=== PATIENT | female | born 1985 | race Caucasian/White ===

== ENCOUNTER 2018-07-08 16:58 | Emergency (ER) | payer MEDICAID, SELFPAY ==
[2018-07-08 17:08] VITALS: BP 118/69; PULSE 90; RESP 18; TEMP 36.9
[2018-07-08 17:43] LABS: Bilirubin Negative (Negative); Blood Negative (Negative); Clarity Clear; Glucose 100 mg/dL (Negative); Ketones Negative (Negative); Leukocyte Esterase Negative (Negative); Nitrite Positive (Negative); Urobilinogen 0.2 EU/dL (Up TO 0.2); pH 5.5 (5-8)
--- NOTE | 2018-07-08 17:47 | ED.GENADUL_ITS ---
Discharge Plan Disposition Patient Disposition: HOME Condition: Fair Discharge Details Chief Complaint: Urinary Clinical Impression: UTI (urinary tract infection) Reason For Visit: POSSIBLE UTI Primary Care Provider: Montserrat Jeter ED Provider: Tammy Connell Home Meds and New Rx's Prescriptions: Continue ibuprofen 600 MG tablet 600 mg PO TID PRNQty: 90 RF: 2 epinephrine [EpiPen 2-Riky] 0.3 MG/0.3 ML auto-injector 0.3 mg IM ONCE Qty: 2 RF: 4 Discharge Instructions Instructions: Urinary Tract Infection in Women (ED) Additional Instructions: Encourage hydration. You may use Pyridium as prescribed symptomatic management. Please take Keflex as prescribed. Even if symptoms improve please take the entire course. Please follow-up with primary care in 1 week if she is not improving. If he develops increased pain, nausea/vomiting, flank pain or other new/worsening symptoms please seek care urgently once again Referrals: Montserrat Jeter, NEWS GATHERING TECHNICIAN [Primary Care Provider] - Discharge Data Discharge Date/Time-TO BE ENTERED AT DEPARTURE: 07/08/18 18:18 Medical Decision Making [facility] Narrative Medical decision making narrative: Patient presents today with chief complaint of dysuria, increased frequency and urgency for the past 5 days. She reports that symptoms are progressively increasing. On exam, she shows very low back pain. No CVA tenderness. Patient reports that she frequently does experience low back pain with her UTIs. Has had multiple UTIs historically. Has not been diagnosed with one in several months. She denies any fevers or chills. Abdomen soft and nontender. Patient has urinated multiple times while here. Urinalysis findings suggestive of urinary tract infection. Nitrite positive Patient will be treated with Keflex for urinary tract infection. Encourage hydration. She was given strict return precautions. Advised follow-up with primary care in 1 week if symptoms are not improving. We discussed new/ worsening symptoms when to seek care urgently once again. All of her questions and concerns were addressed she is in agreement with plan. Patient will be prescribed Pyridium to help with symptomatic management. HPI - General Adult General Mode of arrival: ambulatory . Date/Time Provider Initiated Documentation: 07/08/18 17:14 . Limitations to Documentation: no limitations . Information obtained by: patient . HPI Narrative: Patient is an otherwise healthy 32-year-old female presenting today with chief complaint of dysuria, increased frequency and urgency. She reports that symptoms began approximately 5 days ago. She denies any fevers or chills. She is endorsing some low back pain and low central abdominal pain. She denies any vaginal discharge, no dyspareunia. Reports that she had her last menses 1 week ago. Patient reports she has had urinary tract infections in the past and this feels very similar. Patient also has history of nephrolithiasis but reports that this pain that she is experience in her lower back is not similar to when she has had stones historically. States the pain is fairly minimal and is lower than it had been previously. Related Data Allergies Allergy/AdvReac Type Severity Reaction Status Date / Time venom-honey bee Allergy Severe Anaphylaxsi Unverified 07/08/18 18:06 s Sulfa (Sulfonamide Allergy Mild twin Unverified 07/08/18 18:06 Antibiotics) sister allergic to sulfa General Stated Complaint: Urinary AYESHA: 3 Review of Systems Constitutional Reports as per HPI, Denies chills, Denies fever(s), Denies lethargy, Denies malaise and Denies poor appetite Cardiovascular Denies chest pain Respiratory Reports system reviewed and no additional complaints, except as docu and Denies cough Gastrointestinal Reports as per HPI Genitourinary Reports as per HPI Musculoskeletal Reports as per HPI, Denies abnormal gait and Reports back pain (low back pain, reports this is typical with UTI) Integumentary/Breasts Denies lesions, Denies rash and Denies skin pain Neurologic Denies abnormal gait PFSH Family History Mother Neoplasm Father No problems noted. Sister No problems noted. Grandfather Neoplasm Grandfather Neoplasm Grandmother No problems noted. Grandmother No problems noted. Social History Smoking/Tobacco Use Status: Current every day Surgical History Cholecystectomy Exam Const General: cooperative, healthy appearing, comfortable and no acute distress Nutritional Appearance: average body habitus Orientation: alert and awake Resp Effort & Inspection: normal respiratory effort, able to speak in complete sentences and no respiratory distress Auscultation: clear to auscultation bilaterally Cardio Rate: regular rate Rhythm: regular rhythm Heart Sounds: S1 normal and S2 normal GI Inspection: no abdominal wall ecchymosis, no edema, non-distended and no visible herniation Palpation: soft, no hepatosplenomegaly and tender (patinet is tender in low central abdomen, rpeorts this also makes her feel the need to urinate) Auscultation: normal bowel sounds Back/Spine/Pelvis Back: no CVA tenderness, No CVA tenderness, No erythema, No warmth and back tenderness (area of tenderness is low,just over the iliac crest. No pain elicited with palpation) Skin General skin exam: no rashes or lesions noted Neuro General: alert and awake Cognition: normal cognition Speech: speech normal Gait: normal gait Motor: muscle tone normal throughout Psych Appearance: grossly normal Mental Status: mental status grossly normal Speech and Movement: speech and movement normal Mood: congruent mood Affect: normal affect Course Vital Signs Temperature 36.9 C 07/08/18 17:08 Pulse 90 07/08/18 17:08 Respiratory Rate 07/08/18 17:08 Blood Pressure 118/69 07/08/18 17:08 Temperature 36.9 C 07/08/18 17:08 Pulse 90 07/08/18 17:08 Respiratory Rate 18 07/08/18 17:08 Blood Pressure 118/69 07/08/18 17:08
[2018-07-08 17:52] LABS: Bacteria Moderate HPF (Negative); C & S Indicated? Yes; Casts Negative LPF (Negative); Crystals Negative HPF (Negative); Epithelial Cells Few HPF (Negative); Mucus Negative (Negative); RBC Negative (0-2)
== END 2018-07-08 18:18 | disposition home or self-care (01) ==
PROVIDERS: Emergency Provider Physician Assistant; PCP Nurse Practitioner Gerontology
DX: N39.0 Urinary tract infection, site not specified (principal); B97.89 Other viral agents as the cause of diseases classified elsewhere
CPT/HCPCS: 99283; 81003; 81015; 87086

== ENCOUNTER 2018-07-15 11:51 | Outpatient (REF) | payer MEDICAID, SELFPAY | END 2018-07-15 12:11 | LOC: LBN 11:51 | PROVIDERS: PCP Nurse Practitioner Family; Visit Provider Family Medicine | DX: N39.0 Urinary tract infection, site not specified (principal) | CPT/HCPCS: 87086 ==

== ENCOUNTER 2018-07-24 17:14 | Emergency (ER) | payer MEDICAID, SELFPAY ==
[2018-07-24 17:20] VITALS: BP 123/83; PULSE 86; RESP 18; TEMP 36.8
[2018-07-24 18:16] LABS: Bilirubin Negative (Negative); Blood Negative (Negative); Clarity Sl Cloudy; Glucose Negative (Negative); Ketones Negative (Negative); Leukocyte Esterase Negative (Negative); Nitrite Negative (Negative); Specific Gravity >= 1.030 (1.005-1.025); Urobilinogen 0.2 EU/dL (Up TO 0.2); pH 5.5 (5-8)
--- NOTE | 2018-07-24 18:22 | W.ED.GENAD ---
Discharge Plan Disposition Patient Disposition: HOME Condition: Stable Discharge Details Chief Complaint: Urinary Clinical Impression: Increased urinary frequency, Frequent UTI Primary Care Provider: Silvia Helm ED Provider: Rich Friedman Home Meds and New Rx's Prescriptions: Continue epinephrine 0.15 mg/0.3 mL auto-injector IM PRN (Reason: anaphylaxis) RF: 0 nitrofurantoin macrocrystal 50 mg capsule 50 mg PO PRN Qty: 30 RF: 2 Discharge Instructions Instructions: Dysuria (ED) Additional Instructions: Feel free to return to the emergency department for any new or worsening symptoms including fever chills, nausea vomiting, or painful urination. Otherwise he will be placed upon the follow-up list for arrangement of an appointment with urology. Referrals: Javad Briones MD [ [facility] STAFF PHYSICIAN] - (For a recheck of your urinary frequency and recurrent urinary tract infections) Medical Decision Making Patient presenting to the emergency department for chief complaint of urinary frequency and urgency which she typically gets with her urinary tract infections. Patient denies any burning urination, or vaginal complaints. Patient denies fever chills nausea vomiting but she does state some left lower back pain. Physical exam shows no CVA tenderness, and otherwise unremarkable exam except for mild lower lumbar soft tissue tenderness. Patient states that she has had 4 urinary tract infections in the past year and gets urinary frequency and urgency quite often and at multiple times has had infection and other times does not have infection. I suspect low back pain is more due to patient's history of musculoskeletal back pain and doubt any renal issues due to no CVA tenderness. Given patient's history though of frequent urinary tract infections I do plan on checking urinalysis. After review of urinalysis that shows no signs of infection I did rediscussed with patient any possible other source of urinary urgency or frequency. Patient denies any vaginal complaints whatsoever states a faithful partner for the past 2 years and that she has had STD checks within the last 6 months which have always been negative. Patient denies any pain or discomfort so I did offer urine testing for GC chlamydia which patient denies at this time. Patient urinalysis did show some concentration so there was some signs of dehydration which patient states that she typically does not drink water so she was encouraged to increase her hydration. Otherwise for musculoskeletal back pain patient was encouraged to take ibuprofen. [id number] test was also negative. Due to patient having for urinary tract infections last year and having continued urinary urgency and frequency with no other source or cause noted did put patient on care management's list for a nonemergent follow-up with urology to see if there are any anatomical features causing her symptoms. Although if urology recommends patient to be seen by primary care that that is also reasonable follow-up plan. Patient was encouraged to return for any new or worsening symptoms. HPI General Mode of arrival: ambulatory. Date/Time Provider Initiated Documentation: 07/24/18 17:17. Limitations to Documentation: no limitations. Information obtained by: patient, RN notes reviewed and old records reviewed. History of Present Illness 32 year old F presents to the emergency department with the chief complaint of urinary frequency, described as mild, Quality is described as other, Patient started experiencing this day(s) (1) and it has been constant. No relieving factors improve symptom(s), No exacerbating factors reported . Patient notes no other symptoms.. Patient did receive the following treatments prior to arrival, none Related Data Home Medications Medication Instructions Recorded Confirmed epinephrine 0.15 mg/0.3 mL IM PRN each 07/14/18 07/15/18 injection,auto-injector Previous Rx's Medication Instructions Recorded nitrofurantoin macrocrystal 50 mg 50 mg PO PRN #30 cap 07/20/18 capsule Allergies Allergy/AdvReac Type Severity Reaction Status Date / Time venom-honey bee Allergy Severe Anaphylaxsi Unverified 07/15/18 08:41 s Sulfa (Sulfonamide Allergy Mild twin Unverified 07/15/18 08:41 Antibiotics) sister allergic to sulfa General Stated Complaint: Urinary AYESHA: 3 Review of Systems Constitutional Denies body ache(s), Denies chills, Denies fever(s), Denies malaise and Denies weakness Cardiovascular Denies chest pain Respiratory Reports system reviewed and no additional complaints, except as docu Gastrointestinal Denies abdominal pain, Denies nausea and Denies vomiting Genitourinary Reports as per HPI, Denies abnormal menses, Denies hematuria, Denies dyspareunia, Denies dysuria, Reports sexual dysfunction, Denies urinary incontinence, Denies urinary hesitancy, Reports urinary urgency, Denies vaginal discharge, Denies vaginal pruritus and Reports other Neurologic Denies confusion and Denies weakness Psychiatric Denies confusion PFSH Family History Mother Neoplasm Father No problems noted. Sister No problems noted. Grandfather Neoplasm Grandfather Neoplasm Grandmother No problems noted. Grandmother No problems noted. Social History household members: other details: 4 current occupational status: employed current occupation: [employer] pets and animals: Yes pets and animals: cat(s) Smoking/Tobacco Use Status: Current every day alcohol intake: current alcohol intake frequency: a few times a month substance use type: does not use special ryan needs: No Surgical History Cholecystectomy Exam Const General: cooperative and no acute distress Orientation: alert, awake and oriented x3 Resp Effort & Inspection: normal respiratory effort and able to speak in complete sentences Auscultation: clear to auscultation bilaterally Cardio Rate: regular rate Rhythm: regular rhythm Heart Sounds: S1 normal and S2 normal GI Palpation: nontender Back/Spine/Pelvis Back: no CVA tenderness Thoracic/Lumbar Spine: paraspinal tenderness (As noted below) and No lumbar spinal tenderness Back/spine/pelvis image: 1. area of tenderness Neuro General: alert, awake and oriented x3 Extrem General: normal capillary refill Course Vital Signs Temperature 36.8 C 07/24/18 17:20 Pulse 86 07/24/18 17:20 Respiratory Rate 18 07/24/18 17:20 Blood Pressure 123/83 07/24/18 17:20 Temperature 36.8 C 07/24/18 17:20 Pulse 86 07/24/18 17:20 Respiratory Rate 18 07/24/18 17:20 Blood Pressure 123/83 07/24/18 17:20 Lab/Test Results Lab/Test Results: Laboratory Tests 07/24/18 18:02 Urine Color Yellow Urine Clarity Sl cloudy Urine pH 5.5 Ur Specific [place] >= 1.030 H Urine Protein Negative Urine Ketones Negative Urine Blood Negative Urine Nitrite Negative Urine Bilirubin Negative Urine Urobilinogen 0.2 Ur Leukocyte Esterase Negative Urine Glucose Negative
--- NOTE | 2018-07-24 18:48 | ED.GENADUL_ITS ---
Discharge Plan Disposition Patient Disposition: HOME Condition: Stable Discharge Details Chief Complaint: Urinary Clinical Impression: Increased urinary frequency, Frequent UTI Primary Care Provider: Silvia Helm ED Provider: Rich Friedman Home Meds and New Rx's Prescriptions: Continue epinephrine 0.15 mg/0.3 mL auto-injector IM PRN (Reason: anaphylaxis) RF: 0 nitrofurantoin macrocrystal 50 mg capsule 50 mg PO PRN Qty: 30 RF: 2 Discharge Instructions Instructions: Dysuria (ED) Additional Instructions: Feel free to return to the emergency department for any new or worsening symptoms including fever chills, nausea vomiting, or painful urination. Otherwise he will be placed upon the follow-up list for arrangement of an appointment with urology. Referrals: Javad Briones MD [ [facility] STAFF PHYSICIAN] - (For a recheck of your urinary frequency and recurrent urinary tract infections) Medical Decision Making Patient presenting to the emergency department for chief complaint of urinary frequency and urgency which she typically gets with her urinary tract infections. Patient denies any burning urination, or vaginal complaints. Patient denies fever chills nausea vomiting but she does state some left lower back pain. Physical exam shows no CVA tenderness, and otherwise unremarkable exam except for mild lower lumbar soft tissue tenderness. Patient states that she has had 4 urinary tract infections in the past year and gets urinary frequency and urgency quite often and at multiple times has had infection and other times does not have infection. I suspect low back pain is more due to patient's history of musculoskeletal back pain and doubt any renal issues due to no CVA tenderness. Given patient's history though of frequent urinary tract infections I do plan on checking urinalysis. After review of urinalysis that shows no signs of infection I did rediscussed with patient any possible other source of urinary urgency or frequency. Patient denies any vaginal complaints whatsoever states a faithful partner for the past 2 years and that she has had STD checks within the last 6 months which have always been negative. Patient denies any pain or discomfort so I did offer urine testing for GC chlamydia which patient denies at this time. Patient urinalysis did show some concentration so there was some signs of dehydration which patient states that she typically does not drink water so she was encouraged to increase her hydration. Otherwise for musculoskeletal back pain patient was encouraged to take ibuprofen. [id number] test was also negative. Due to patient having for urinary tract infections last year and having continued urinary urgency and frequency with no other source or cause noted did put patient on care management's list for a nonemergent follow- up with urology to see if there are any anatomical features causing her symptoms. Although if urology recommends patient to be seen by primary care that that is also reasonable follow-up plan. Patient was encouraged to return for any new or worsening symptoms. HPI General Mode of arrival: ambulatory . Date/Time Provider Initiated Documentation: 07/24/18 17:17 . Limitations to Documentation: no limitations . Information obtained by: patient, RN notes reviewed and old records reviewed . History of Present Illness 32 year old F presents to the emergency department with the chief complaint of urinary frequency, described as mild, Quality is described as other, Patient started experiencing this day(s) (1) and it has been constant. No relieving factors improve symptom(s), No exacerbating factors reported . Patient notes no other symptoms.. Patient did receive the following treatments prior to arrival, none Related Data Home Medications Medication Instructions Recorded Confirmed epinephrine 0.15 mg/0.3 mL IM PRN each 07/14/18 07/15/18 injection,auto-injector Previous Rx's Medication Instructions Recorded nitrofurantoin macrocrystal 50 mg 50 mg PO PRN #30 cap 07/20/18 capsule Allergies Allergy/AdvReac Type Severity Reaction Status Date / Time venom-honey bee Allergy Severe Anaphylaxsi Unverified 07/15/18 08:41 s Sulfa (Sulfonamide Allergy Mild twin Unverified 07/15/18 08:41 Antibiotics) sister allergic to sulfa General Stated Complaint: Urinary AYESHA: 3 Review of Systems Constitutional Denies body ache(s), Denies chills, Denies fever(s), Denies malaise and Denies weakness Cardiovascular Denies chest pain Respiratory Reports system reviewed and no additional complaints, except as docu Gastrointestinal Denies abdominal pain, Denies nausea and Denies vomiting Genitourinary Reports as per HPI, Denies abnormal menses, Denies hematuria, Denies dyspareunia , Denies dysuria, Reports sexual dysfunction, Denies urinary incontinence, Denies urinary hesitancy, Reports urinary urgency, Denies vaginal discharge, Denies vaginal pruritus and Reports other Neurologic Denies confusion and Denies weakness Psychiatric Denies confusion PFSH Family History Mother Neoplasm Father No problems noted. Sister No problems noted. Grandfather Neoplasm Grandfather Neoplasm Grandmother No problems noted. Grandmother No problems noted. Social History household members: other details: 4 current occupational status: employed current occupation: [employer] pets and animals: Yes pets and animals: cat(s) Smoking/Tobacco Use Status: Current every day alcohol intake: current alcohol intake frequency: a few times a month substance use type: does not use special ryan needs: No Surgical History Cholecystectomy Exam Const General: cooperative and no acute distress Orientation: alert, awake and oriented x3 Resp Effort & Inspection: normal respiratory effort and able to speak in complete sentences Auscultation: clear to auscultation bilaterally Cardio Rate: regular rate Rhythm: regular rhythm Heart Sounds: S1 normal and S2 normal GI Palpation: nontender Back/Spine/Pelvis Back: no CVA tenderness Thoracic/Lumbar Spine: paraspinal tenderness (As noted below) and No lumbar spinal tenderness Back/spine/pelvis image: 2 1. area of tenderness Neuro General: alert, awake and oriented x3 Extrem General: normal capillary refill Course Vital Signs Temperature 36.8 C 07/24/18 17:20 Pulse 86 07/24/18 17:20 Respiratory Rate 18 07/24/18 17:20 Blood Pressure 123/83 07/24/18 17:20 Temperature 36.8 C 07/24/18 17:20 Pulse 86 07/24/18 17:20 Respiratory Rate 18 07/24/18 17:20 Blood Pressure 123/83 07/24/18 17:20 Lab/Test Results Lab/Test Results: Laboratory Tests 07/24/18 18:02 Urine Color Yellow Urine Clarity Sl cloudy Urine pH 5.5 Ur Specific [place] >= 1.030 H Urine Protein Negative Urine Ketones Negative Urine Blood Negative Urine Nitrite Negative Urine Bilirubin Negative Urine Urobilinogen 0.2 Ur Leukocyte Esterase Negative Urine Glucose Negative
[2018-07-24 18:59] VITALS: BP 123/83; PULSE 86; RESP 18; TEMP 36.8
--- NOTE | 2018-07-27 09:27 | PDOC.ERCMPRO ---
Care Management Progress Note 07/27/18-Pt seen on 07/24/18 by Rudy Friedman NP for increased UTI frequency. F/U request faxed to Urology.
== END 2018-07-24 19:05 | disposition home or self-care (01) ==
PROVIDERS: Emergency Provider Nurse Practitioner Family; PCP Nurse Practitioner Family
DX: R35.0 Frequency of micturition (principal); Z87.440 Personal history of urinary (tract) infections
CPT/HCPCS: 81025; 99283; 81003; 87086; 99282

== ENCOUNTER 2019-06-02 14:20 | Outpatient (CLI) | payer MEDICAID, SELFPAY ==
--- NOTE | 2019-06-02 13:45 | DI.US_ITS ---
SYMPTOMS/DIAGNOSIS: BLEEDING, EARLY , ABDOMINAL CRAMPING, O20.9, O26.899, R10.9 OB ULTRASOUND: Many abnormalities cannot be diagnosed. A normal exam does not exclude a congenital anomaly. HISTORY: Date of exam: LMP: EDC by LMP: Previous study: 5 wks Range: to EDC by prior us: Findings: Prior surgery/: BIOMETRY: PELVIC MEASUREMENTS: CRL: mm wks Uterus: 8.2 x 4.3 x 3.5 cm Yolk sac: mm wks Gest sac: mm wks Rt Ovary: 2.6 x 1.9 x 1.8 cm BPD: mm wks HC: mm wks Lt Ovary: N/S x x cm AC: mm wks FL: mm wks Comments: Endometrium 9.7 mm Composite Age (US): wks EDC by US: Heart Rate: BPM Amniotic Fluid: [place] Normal Polyhydramnios Movement noted: Yes No Comments: The uterus measures 8.2 x 4.3 x 3.5 cm. There is no evidence of an intrauterine gestation. The endometrium is 9.7 mm in thickness. The right ovary measures 2.6 x 1.9 x 1.8 cm. The left ovary was not seen. There is no evidence of free pelvic fluid. SUMMARY: No evidence of an intrauterine gestation. Nothing specific to suggest an ectopic gestation. Correlation with the patient's hCG levels is recommended.
[2019-06-02 15:10] LABS: HCG Quant, Pregnancy 31 mIU/mL (1-3)
== END 2019-06-02 14:40 ==
PROVIDERS: PCP Nurse Practitioner Family; Visit Provider Nurse Practitioner Women's Health
DX: O20.9 Hemorrhage in early pregnancy, unspecified (principal); O26.899 Other specified pregnancy related conditions, unspecified trimester; R10.9 Unspecified abdominal pain
CPT/HCPCS: 36415; 86850; 86900; 86901; 76801; 84702

== ENCOUNTER 2019-06-07 15:20 | Outpatient (CLI) | payer MEDICAID, SELFPAY ==
[2019-06-07 16:22] LABS: HCG Quant, Pregnancy 4 mIU/mL (1-3)
== END 2019-06-07 15:40 ==
PROVIDERS: PCP Nurse Practitioner Family; Visit Provider Nurse Practitioner Women's Health
DX: O03.9 Complete or unspecified spontaneous abortion without complication (principal)
CPT/HCPCS: 36415; 84702

== ENCOUNTER 2019-06-09 19:05 | Emergency (ER) | payer MEDICAID, SELFPAY ==
[2019-06-09 19:09] VITALS: BP 147/73; PULSE 78; RESP 16; TEMP 36.6; O2SAT 100
--- NOTE | 2019-06-09 19:14 | W.ED.GENAD ---
Discharge Plan Disposition Patient Disposition: HOME Condition: Fair Discharge Details Chief Complaint: Urinary Clinical Impression: UTI (urinary tract infection) Primary Care Provider: Silvia Helm ED Provider: Tammy Connell Home Meds and New Rx's Prescriptions: New cephalexin [Keflex] 500 mg capsule 500 mg PO BID Qty: 10 RF: 0 Continued nicotine 21 mg/24 hr patch 24 hour 1 patch TD DAILY Qty: 42 RF: 0 nicotine 7 mg/24 hr patch 24 hour 1 patch TD DAILY 14 Days Qty: 14 RF: 6 sumatriptan succinate 50 mg tablet 50 mg PO ONCE PRN (Reason: migraine headache) Qty: 90 RF: 1 epinephrine 0.15 mg/0.3 mL auto-injector IM PRN (Reason: anaphylaxis) RF: 0 Discharge Instructions Instructions: Cephalexin (By mouth), Urinary Tract Infection in Women (ED) Additional Instructions: Encourage hydration. May continue with Azo to help with symptoms. Please take Keflex as prescribed. Even if symptoms improve please take the entire course. If you develop fevers/chills, back pain or other new/worsening symptoms please seek care urgently once again. Please follow up with primary care next week if symptoms are not completely resolved. Referrals: Silvia Helm, PROGRAMMING COORDINATOR [Primary Care Provider] - Medical Decision Making Patient is a 33 year old female presenting today with c/c of UTI. States that she has had UTIs historically, was last diagnosed with UTI 07/21. Successfully treated wit habx. States that she had a miscarriage last week, 6 weeks gestation. Bleeding has resolved, no vaginal discharge. States that dysurea, increased frequency and urgency began this morning. Used Azo with good relief of symptoms. Denies CVA tenderness, no fevers/chills. No abdominla pin on exam. Patient nontoxic. BP elevated at 147/73, otherwise VS WNL. UA pending. UPT negative. UA is difficult to interrpret secondary to color contamination from Azo. With her history, I am concered that she has UTI, will treat with Keflex, culture pending. encourage hydrated. Discussed worsening symptoms that should prompt reevaluation. All of her questions and concerns were addressed, she is in agreement iwht this plan. HPI General Mode of arrival: ambulatory. Date/Time Provider Initiated Documentation: 06/09/19 19:14. Limitations to Documentation: no limitations. Information obtained by: patient and RN notes reviewed. History of Present Illness 33 year old F presents to the emergency department with the chief complaint of dysurea, described as moderate and similar to prior episodes, Quality is described as burning, and is localized to the pelvis (discomfort with urination). Patient reports radiation to back. Patient started experiencing this hour(s) and it has been constant. No relieving factors improve symptom(s), No exacerbating factors reported . Patient notes denies chest pain, cough, diaphoresis, fever/chills, loss of appetite, nausea/vomiting, rash and shortness of breath. Patient did receive the following treatments prior to arrival, other (azo) Related Data Home Medications Medication Instructions Recorded Confirmed epinephrine 0.15 mg/0.3 mL IM PRN each 07/14/18 06/02/19 injection,auto-injector nicotine 21 mg/24 hr daily 1 patch TD DAILY #42 each 03/17/19 06/09/19 transdermal patch nicotine 7 mg/24 hr daily 1 patch TD DAILY 14 Days #14 each 03/17/19 06/09/19 transdermal patch sumatriptan succinate 50 mg tablet 50 mg PO ONCE PRN #90 tab 03/17/19 06/09/19 cephalexin [Keflex] 500 mg PO BID #10 cap 06/09/19 Previous Rx's Medication Instructions Recorded nicotine 21 mg/24 hr daily 1 patch TD DAILY #42 each 03/17/19 transdermal patch nicotine 7 mg/24 hr daily 1 patch TD DAILY 14 Days #14 each 03/17/19 transdermal patch sumatriptan succinate 50 mg tablet 50 mg PO ONCE PRN #90 tab 03/17/19 cephalexin [Keflex] 500 mg PO BID #10 cap 06/09/19 Allergies Allergy/AdvReac Type Severity Reaction Status Date / Time venom-honey bee Allergy Severe Anaphylaxsi Verified 06/09/19 19:15 s Sulfa (Sulfonamide Allergy Mild twin Verified 06/09/19 19:15 Antibiotics) sister allergic to sulfa General AYESHA: 3 Review of Systems Constitutional Reports as per HPI, Denies chills, Denies fever(s) and Denies poor appetite Cardiovascular Denies chest pain Respiratory Denies cough Gastrointestinal Denies abdominal pain, Denies change in bowel habits, Denies nausea and Denies vomiting Genitourinary Reports as per HPI Musculoskeletal Reports as per HPI and Denies back pain Integumentary/Breasts Reports as per HPI and Denies rash [facility] Medical History Cigarette smoker (Chronic 02/13/18) Generalized anxiety disorder (Chronic) Hyperlipidemia (Chronic) Migraine headache with aura (Chronic) Surgical History Cholecystectomy (Inactive ~2010) Social History Smoking/Tobacco Use Status: Current every day Tobacco: How many years used: 15 Quit status: considering quitting Alcohol Intake: current Alcohol Intake frequency: a few times a month Alcohol type: hard liquor Drug use: Never Substance use type: does not use Caregiver/Support person: No Household members: significant other, family, children and other Details: Sister, Boyfriend, Niece Communication Needs: None Do you need help understanding health information?: Rarely current occupation: Factory line at [employer] Pets and animals: No Sexually active: No Current gender identity: female What is your relationship status?: living with partner How often do you talk on the phone with friends or family?: three or more times per week How often do you get together with friends or relatives?: three or more times per week How often do you attend sabianism or yarsani services?: decline to answer Do you belong to any clubs or organized social groups?: no Panel score (0-1 are the most socially isolated patients): 2 What type of physical activity do you participate in: none Jayla/Yazidi: None Special jayla needs: No Seatbelt use: always Helmet use: Yes Helmet use: always Drive intox or ride w/intox retail delivery driver: No Do you feel safe in your relationship?: Yes Female Reproductive History Menstrual control method: none History History 2 Para Hx # Term Pregnancies Multiple births Hx # Pregnancies Ectopic pregnancies AB induced 1 Hx Number of Living Children AB spontaneous 1 Exam Const General: cooperative, healthy appearing, comfortable, no acute distress, well developed and well groomed Nutritional Appearance: average body habitus and well nourished Orientation: alert and awake Resp Effort & Inspection: normal respiratory effort and no respiratory distress Auscultation: clear to auscultation bilaterally, no rales, no rhonchi and no wheezes Cardio Rate: regular rate Rhythm: regular rhythm Heart Sounds: S1 normal and S2 normal GI Inspection: normal to inspection Palpation: soft, no hepatosplenomegaly, not firm, no guarding, not rigid and nontender Back/Spine/Pelvis Back: no CVA tenderness Skin General skin exam: no rashes or lesions noted Trauma: no lacerations or abrasions Neuro General: alert and awake Cognition: normal cognition Speech: speech normal Gait: normal gait Psych Appearance: grossly normal and well kempt Mental Status: mental status grossly normal Speech and Movement: speech and movement normal
[2019-06-09 19:17] LABS: Bilirubin Negative (Negative); Blood Negative (Negative); Clarity Clear (Clear); Ketones Negative (Negative); Leukocyte Esterase Negative (Negative)
[2019-06-09 19:19] LABS: Glucose Color Interference mg/dL (Negative); Urobilinogen Color Interference EU/dL (Up TO 0.2)
[2019-06-09 19:20] LABS: Nitrite Color Interference (Negative)
[2019-06-09 19:32] LABS: Bacteria Few HPF (Negative); Crystals Negative HPF (Negative); Epithelial Cells Moderate HPF (Negative); Other Cells Few Transitional (Negative); RBC 0-2 (0-2)
[2019-06-09 19:33] LABS: C & S Indicated? Yes; Casts Negative LPF (Negative); Mucus Negative (Negative)
[2019-06-09] MEDS: Cephalexin 500 MG CAP 1000 MG PO (20:05)
== END 2019-06-09 20:18 | disposition home or self-care (01) ==
PROVIDERS: Emergency Provider Physician Assistant; PCP Nurse Practitioner Family
DX: N39.0 Urinary tract infection, site not specified (principal); Z87.440 Personal history of urinary (tract) infections
CPT/HCPCS: 87077; 99283; 81003; 81015; 87086; 87186

== ENCOUNTER 2020-05-12 16:15 | Outpatient (REF) | payer SELFPAY ==
--- NOTE | 2020-05-12 14:20 | PAPFT_PTH ---
PATIENT: Aj Horvath LOC: [facility] U#:[id number] AGE/SX: 34/F ROOM: RE05/12/[address]: BLACK Cordoba : 1985 BED: DIS: 05/12/2020 SPEC #: [id number] RECD: 05/15/20 13:01 STATUS: BECCA DRAKE #: [id number] MEHRDAD: 05/12/20 14:[address]: Silvia Helm DEPT: [facility] Cytology RECD BY: Kelly Vergara Tissues: 1 - CX/ENDOCX FOR PAP SMEARS Procedures: PAP THIN PREP/UVM Screening HPV DNA PROBE Comments: [id number]
== END 2020-05-12 16:35 ==
LOC: LBN 16:15
PROVIDERS: PCP Nurse Practitioner Family; Visit Provider Nurse Practitioner Family
DX: Z12.4 Encounter for screening for malignant neoplasm of cervix (principal); Z11.51 Encounter for screening for human papillomavirus (HPV)
CPT/HCPCS: 88142; 87624

== ENCOUNTER 2020-05-29 07:40 | Outpatient (CLI) | payer SELFPAY ==
[2020-05-31 15:10] LABS: SARS-CoV-2 RNA Undetected (Undetected); SARS-CoV-2 Specimen Source Nasopharynx
== END 2020-05-29 08:00 ==
PROVIDERS: PCP Nurse Practitioner Family; Visit Provider Nurse Practitioner Family
DX: Z03.818 Encounter for observation for suspected exposure to other biological agents ruled out (principal)
CPT/HCPCS: U0003

== ENCOUNTER 2024-11-05 14:27 | Outpatient (CLI) | payer SELFPAY ==
[2024-11-05 14:23] LABS: Abs Immature Grans 0.02 10^3/uL (0.0-0.06); Absolute Basophil Count 0.04 10^3/uL (0.0-0.2); Absolute Eosinophil Count 0.41 10^3/uL (0.0-0.7); Absolute Lymphocyte Count 1.15 10^3/uL (1.2-3.4); Absolute Monocyte Count 0.41 10^3/uL (0.1-0.8); Basophils % 0.7 %; Eosinophils % 7.3 %; HCT 36.4 % (36.0-46.0); HGB 12.3 g/dL (11.2-15.7); Immature Grans % 0.4 %; Lymphocytes % 20.4 %; MCHC 33.8 % (32.0-36.0); MCV 92 fL (80-95); Monocytes % 7.3 %; Neutrophils % 63.9 %; Platelet Count 320 10^3/uL (130-400); RBC 3.97 10^6/uL (3.93-5.22); RDW 11.9 % (11.7-14.6); RDW-SD 39.9 fL; WBC 5.63 10^3/uL (4.4-10.8)
[2024-11-05 15:10] LABS: ALT 27 U/L (14-59); AST 17 U/L (15-37); Albumin 3.2 g/dL (3.4-5.0); Alkaline Phosphatase 81 U/L (46-116); Anion Gap 9.2 mmol/L (3-11); BUN 4 mg/dL (7-18); Bilirubin, Total 0.56 mg/dL (0.2-1.0); CO2 26.8 mmol/L (21.0-32.0); CREATININE 0.8 mg/dL (0.55-1.02); Calcium 8.5 mg/dL (8.5-10.1); Chloride 104 mmol/L (98-107); Estimated GFR 97.87 (mL/min/1.73m2); Glucose 127 mg/dL (74-106); Potassium 3.4 mmol/L (3.5-5.1); Sodium 140 mmol/L (136-145); Total Protein 7.3 g/dL (6.4-8.2)
[2024-11-07 19:51] LABS: Campylobacter PCR Negative (Negative); Salmonella PCR Negative (Negative); Shiga Toxin PCR Negative (Negative); Shigella/Enteroinvasive Ecoli Negative (Negative)
== END 2024-11-05 14:28 | disposition home or self-care (01) ==
LOC: LBO 14:29 → LBN 15:13
PROVIDERS: Visit Provider Physician Assistant
DX: R19.7 Diarrhea, unspecified (principal)
CPT/HCPCS: 36415; 80053; 87505; 85025; 87177

== ENCOUNTER 2024-11-10 17:18 | Emergency (ER) | payer SELFPAY ==
[2024-11-10 17:27] VITALS: BP 121/76; PULSE 93; RESP 18; TEMP 36.8; O2SAT 100
[2024-11-10 18:10] VITALS: BP 116/79; PULSE 86; RESP 18; TEMP 37.5; O2SAT 100
--- NOTE | 2024-11-10 19:40 | ED.GENADUL_ITS ---
Discharge Plan Disposition Patient Disposition: Home Condition: Good Discharge Details Clinical Impression: Colitis Primary Care Provider: Unknown,Unknown ED Provider: Jen Lazo Home Meds and New Rx's Prescriptions: No Action epinephrine 0.15 mg/0.3 mL auto-injector 0.3 ml IM ONCE PRN (Reason: anaphylaxis) Discharge Instructions Instructions: Colitis (DC) Additional Instructions: Call your primary care doctor in the morning to schedule an appointment for within the next 72 hours to followup on your visit here. Return to the emergency department for new or worsening symptoms including fever, vomiting, abdominal pain, increasing amounts of blood in your stool, feeling like you are going to pass out, or if you have any other concerns. You also have an adrenal nodule which your PCP should follow-up on; they may want to get more imaging. HPI General Mode of arrival: ambulatory . Date/Time Provider Initiated Documentation: 11/10/24 17:35 . Limitations to Documentation: no limitations . Information obtained by: patient and old records reviewed ([facility] note and diagnosis 11/05/24) . HPI Narrative: 38yo F presenting wtih bloody stool. Has had diarrhea for the past 2 weeks, 3-5 episodes of loose stool each day. Today began to noticed small amounts of blood in the toilet and when she wipes. No abdominal pain, lightheadeness, or synco pe. Went to urgent care on 11/05 where she had reassuring labs and negative stool studies. No change in character or frequency of stool since then aside from noticing blood. Otherwise in her usual state of health with no fevers, chills, rash, nausea, vomiting, or other concerns. Related Data Home Medications ?Medication ?Instructions ?Recorded ?Confirmed epinephrine 0.15 mg/0.3 mL 0.3 ml IM ONCE PRN anaphylaxis 05/14/20 11/10/24 injection,auto-injector Allergies Allergy/AdvReac Type Severity Reaction Status Date / Time venom-honey bee Allergy Severe Anaphylaxsi Verified 11/10/24 17:30 s Sulfa (Sulfonamide Allergy Mild twin Verified 11/10/24 17:30 Antibiotics) sister allergic to sulfa General Stated Complaint: Abd Prob AYESHA: 3 Review of Systems Narrative: see HPI Exam Narrative Exam Narrative: General: Alert, well appearing, well nourished, in no acute distress. Head: Normocephalic, atraumatic Neck: Trachea midline, ?Neck supple. ENT: ?MMM.? No oropharygeal lesions or exudate. Cardiac: ?RRR, no murmurs appreciated Resp: No respiratory distress. CTAB. Abd: ?Soft, non-distended, nontender Rectal: Normal external exam. Good tone. No palpable masses. No aleksander blood. : ?No suprapubic tenderness. No CVA tenderness. Extremities: ?No deformities.? No peripheral edema. Neurologic: GCS 15. ? Moves all extremities freely against gravity Course Vital Signs Vital signs: Vital Signs Temperature 36.8 C 11/10/24 17:27 Pulse 93 H 11/10/24 17:27 Respiratory Rate 18 11/10/24 17:27 Blood Pressure 121/76 11/10/24 17:27 Pulse Oximetry 100 11/10/24 17:27 Temperature 37.5 C 11/10/24 18:10 Temperature Source Tympanic 11/10/24 18:10 Pulse 86 11/10/24 18:10 Respiratory Rate 18 11/10/24 18:10 Blood Pressure 116/79 11/10/24 18:10 Blood Pressure Position Sitting 11/10/24 17:27 Pulse Oximetry 100 11/10/24 18:10 Oxygen Delivery Method Room Air 11/10/24 18:10 Oxygen Flow Rate 0 11/10/24 18:10 Pain Level 5 11/10/24 17:27 Medical Decision Making 38yo F presenting wtih bloody stool. Has had diarrhea for the past 2 weeks, 3-5 episodes of loose stool each day. Went to urgent care on 11/05 where she had reassuring labs and negative stool studies. Today small amounts of blood in the toilet and when she wipes. No fevers, abdominal pain, lightheadeness, or syncope. Vital signs reassuring on arrival. No abdominal tenderness on exam. Rectal exam with no hemorrhoids, no gross blood. Labs reviewed as below, CBC with no leukocytosis or anemia, CMP with no actionable abnormalities, negative. CT abd pelvis independently reviewed, agree with radiology read below with acute colitis, incidental adrenal nodule. No stool in the ED so repeat stool studies not ordered. With no fever or abdominal pain, would not treat with abx at this time. Possibility of inflammatory colitis (UC, etc) discussed with patient. Advised symptomatic treatment at home and close PCP followup; pt newly returned to the area and so referral to her former primary care practice and [facility] was sent. Discharge instructions and return precautions were reviewed with patient who verbalized understanding. All questions were answered and she is in full agreement with the plan. Imaging Data Radiologic Study: Imaging: CT Scan Radiologist's impression: IMPRESSION: 1. Ruptured 2.0 cm left ovarian corpus luteum with a small amount of free fluid in the cul-de-sac of Donnie and adnexal regions. 2. Extensive colonic wall thickening with adjacent hazy fat stranding and scattered small pericolic lymph nodes suspicious for extensive acute colitis. Infectious or inflammatory colitis would be favored in a young patient. This distribution would be atypical for ischemia although ischemia is not excluded. Clinical correlation is recommended. 3. 9 mm right adrenal nodule with a density of 59 Hounsfield units on image 17 of series 8. Correlation with prior imaging recommended to document stability of size versus MRI with chemical shift imaging for definitive evaluation. Lab Data Lab results reviewed: Yes I reviewed the patient's lab results. Labs: Laboratory Tests Range/Units 11/10/24 20:34 WBC (4.4-10.8) 10^3/uL 7.59 RBC (3.93-5.22) 10^6/uL 3.93 Hgb (11.2-15.7) g/dL 12.2 Hct (36.0-46.0) % 36.4 MCV (80-95) fL 93 MCH (27.0-33.0) pg 31.0 MCHC (32.0-36.0) % 33.5 RDW (11.7-14.6) % 11.9 Plt Count (130-400) 10^3/uL 350 MPV (8.0-11.0) fL 9.1 Immature Gran % % 0.3 Neutrophils % % 61.7 Lymphocytes % % 18.8 Monocytes % % 9.4 Eosinophils % % 9.1 Basophils % % 0.7 Nucleated RBC % (0.0-0.3) % 0.0 Absolute Neutrophils (1.2-6.7) 10^3/uL 4.69 Absolute Lymphocytes (1.2-3.4) 10^3/uL 1.43 Absolute Monocytes (0.1-0.8) 10^3/uL 0.71 Absolute Eosinophils (0.0-0.7) 10^3/uL 0.69 Absolute Basophils (0.0-0.2) 10^3/uL 0.05 Sodium (136-145) mmol/L 139 Potassium (3.5-5.1) mmol/L 3.7 Chloride (98-107) mmol/L 101 Carbon Dioxide (21.0-32.0) mmol/L 30.0 Anion Gap (3-11) mmol/L 8.0 BUN (7-18) mg/dL 7 Creatinine (0.55-1.02) mg/dL 0.8 Est GFR (CKD-EPI 2020) (mL/min/1.73m2) 97.87 Glucose (74-106) mg/dL 107 H Calcium (8.5-10.1) mg/dL 9.1 Total Bilirubin (0.2-1.0) mg/dL 0.47 AST (15-37) U/L 19 ALT (14-59) U/L 27 Alkaline Phosphatase (46-116) U/L 91 Total Protein (6.4-8.2) g/dL 8.0 Albumin (3.4-5.0) g/dL 3.5 Serum HCG, Qual Negative Quality:SDOH Health Related Social Needs: No Data to Display PFSH All Active Problems Colitis (Acute) Hyperlipidemia (Chronic) Generalized anxiety disorder (Chronic) Migraine headache with aura (Chronic) Cigarette smoker (Chronic) Surgical History S/P cholecystectomy (~2010) Family History Mother Breast cancer Early 40s Depression Father Alcohol abuse Sister Alcohol abuse Depression Maternal Grandfather Liver disease Alcohol abuse Neoplasm Unknown type Heart disease Maternal Grandmother , at 94 from stroke Stroke Skin cancer Paternal Grandfather , at 35 of ?cancer Alcohol abuse Neoplasm Unknown type Paternal Grandmother Depression Social History Smoking/Tobacco Use Status: Current every day Tobacco: How many years used: 15 Quit status: considering quitting Smoking risk assessment performed?: Yes Alcohol Intake: current Alcohol Intake frequency: a few times a month Alcohol type: hard liquor Drug use: Never Substance use type: does not use Caregiver/Support person: No Household members: significant other, family, children and other Details: Sister, Boyfriend, Niece Housing: house Communication Needs: None Do you need help understanding health information?: Rarely current occupation: Factory line at [employer] Pets and animals: No Sexually active: No Current gender identity: female What is your relationship status?: living with partner How often do you talk on the phone with friends or family?: three or more times per week How often do you get together with friends or relatives?: three or more times per week How often do you attend yazdanism or judaism services?: decline to answer Do you belong to any clubs or organized social groups?: no Panel score (0-1 are the most socially isolated patients): 2 What type of physical activity do you participate in: none Jayla/Yazidism: None Special jayla needs: No Seatbelt use: always Helmet use: Yes Helmet use: always Drive intox or ride w/intox pick up driver: No Do you feel safe at home: Yes Do you feel safe in your relationship?: Yes Female Reproductive History Menstrual control method: none History History 2 Para Hx # Term Pregnancies Multiple births Hx # Pregnancies Ectopic pregnancies AB induced 0 Hx Number of Living Children AB spontaneous 2
--- NOTE | 2024-11-10 19:45 | DI.CT_ITS ---
Exam(s) CT ABDOMEN PELVIS W EXAM: CT ABDOMEN PELVIS W CLINICAL HISTORY: bloody diarhea TECHNIQUE: Imaging Protocol: Axial computed tomography images with coronal and sagittal reformatted images were created and reviewed. CONTRAST MATERIAL: Intravenous: Omnipaque 350 Contrast volume:100 mL Oral: No COMPARISON: CT ABD PELVIS WITH CONTRAST from 08/10/2010 FINDINGS: ABDOMEN: Lung Bases: No acute abnormality. Liver: Normal density. No measurable mass. Portal, Superior Mesenteric, and Splenic Veins: Unremarkable. Gallbladder and Biliary Tract: Status post cholecystectomy. No biliary ductal dilatation. Pancreas: Normal density, no abnormal calcifications or inflammatory process. Spleen: Normal. Adrenals: There is a 7 mm nodule on the right adrenal gland likely reflect an adenoma. The right adr enal gland is unremarkable. Kidneys: Normal size, contour and axis. No radiodense stones or obstructive uropathy. No masses seen. Abdominal Aorta: Abdominal portion non-dilated. Bowel: There is no evidence of bowel obstruction. There is mild diffuse bowel wall thickening seen t hroughout the colon. Appendix is unremarkable. Peritoneal Cavity: No ascites, collection or mesenteric inflammatory response. No free air. Lymph Nodes: Within normal limits. Bones: Within normal limits for the patient's age. Soft Tissues: Unremarkable. PELVIS: Bladder: Symmetric distention, no gross wall thickening. Reproductive Organs: There is a 2.3 cm follicular cyst on the left ovary. This likely represents a c orpus luteal cyst. There is a trace amount of free fluid in the pelvis. These findings are likely p hysiologic. Lymph Nodes: Within normal limits. Bones: Within normal limits for the patient's age. IMPRESSION: 1. Mild diffuse bowel wall thickening of the colon. This may represent an acute infectious or inflam matory colitis. No abscess or free air. 2. 2.3 cm left ovarian cyst likely reflecting the corpus luteal cyst. Trace amount of free fluid in the pelvis which is likely physiologic. 3. 7 mm right adrenal nodule likely reflecting an adenoma. Nonemergent MRI is recommended for furthe r evaluation. Unexpected findings RADIATION DOSE DELIVERED: 901.06mGy.cm Total DLP DATA REPOSITORY: All CT scans at this facility are submitted to the National Radiology Data Registry (NRDR) Dose Index Registry (DIR) with the [employer] (ACR). RADIATION OPTIMIZATION: All CT scans at this facility use at least one of these dose optimization te chniques: automated exposure control; mA and/or kV adjustment per patient size (includes targeted exa ms where dose is matched to clinical indication); or iterative reconstruction.
[2024-11-10 20:38] LABS: Abs Immature Grans 0.02 10^3/uL (0.0-0.06); Absolute Basophil Count 0.05 10^3/uL (0.0-0.2); Absolute Eosinophil Count 0.69 10^3/uL (0.0-0.7); Absolute Lymphocyte Count 1.43 10^3/uL (1.2-3.4); Absolute Monocyte Count 0.71 10^3/uL (0.1-0.8); Absolute Neutrophil Count 4.69 10^3/uL (1.2-6.7); Basophils % 0.7 %; Eosinophils % 9.1 %; HCT 36.4 % (36.0-46.0); HGB 12.2 g/dL (11.2-15.7); Immature Grans % 0.3 %; Lymphocytes % 18.8 %; MCHC 33.5 % (32.0-36.0); MCV 93 fL (80-95); MPV 9.1 fL (8.0-11.0); Monocytes % 9.4 %; Neutrophils % 61.7 %; Platelet Count 350 10^3/uL (130-400); RBC 3.93 10^6/uL (3.93-5.22); RDW 11.9 % (11.7-14.6); RDW-SD 40.7 fL; WBC 7.59 10^3/uL (4.4-10.8)
[2024-11-10 20:53] LABS: ALT 27 U/L (14-59); AST 19 U/L (15-37); Albumin 3.5 g/dL (3.4-5.0); Alkaline Phosphatase 91 U/L (46-116); BUN 7 mg/dL (7-18); Bilirubin, Total 0.47 mg/dL (0.2-1.0); CREATININE 0.8 mg/dL (0.55-1.02); Calcium 9.1 mg/dL (8.5-10.1); Chloride 101 mmol/L (98-107); Estimated GFR 97.87 (mL/min/1.73m2); Glucose 107 mg/dL (74-106); Potassium 3.7 mmol/L (3.5-5.1); Sodium 139 mmol/L (136-145)
[2024-11-10 20:56] LABS: HCG Qual (Serum) Negative
[2024-11-10] MEDS: Normal Saline - Diluent 50 ML VIAL IJ (21:03)
[2024-11-10] MEDS: Omnipaque 350 MG/ML 100 ML BTL IJ (21:03)
[2024-11-10 21:50] VITALS: BP 119/53; PULSE 78; RESP 16; O2SAT 100
--- NOTE | 2024-11-10 22:16 | DI.VRAD_ITS ---
PROCEDURE INFORMATION: Exam: CT Abdomen And Pelvis With Contrast Exam date and time: 11/10/2024 9:00 PM Age: 38 years old Clinical indication: Other: Bloody diarhea TECHNIQUE: Imaging protocol: Computed tomography of the abdomen and pelvis with contrast. Contrast material: OMNI 350; Contrast volume: 100 ml; Contrast route: INTRAVENOUS (IV); COMPARISON: US OB 1st trimester 06/02/2019 2:00 PM FINDINGS: Lungs: Lung bases clear. Liver: Normal appearing liver. Gallbladder and biliary ducts: Prior cholecystectomy with mild postop biliary prominence. Pancreas: Normal appearing pancreas. Spleen: Normal appearing spleen. Adrenal glands: Normal-appearing left adrenal gland. 9 mm right adrenal nodule with a density of 59 Hounsfield units on image 17 of series 8. Kidneys and ureters: Normal appearing kidneys. No hydronephrosis. No obstructing ureteral stones. Stomach and bowel: No oral contrast. Stomach partially decompressed. No small bowel dilatation to suggest obstruction. Extensive colonic wall thickening with pericolic fat stranding and numerous scattered pericolic lymph nodes suspicious for extensive acute colitis. Clinical correlation recommended. Appendix: Retrocecal appendix extending superiorly along the inferior liver margin, partially gas-filled, and partially fluid-filled with a maximum transverse dimension of 7 mm but no surrounding inflammatory change to suggest appendicitis. Intraperitoneal space: Small amount of free fluid in the deep pelvis. No free air. Vasculature: Normal caliber abdominal aorta. Lymph nodes: Scattered small mesenteric lymph nodes, nonspecific. Urinary bladder: Urinary bladder partially collapsed but grossly unremarkable, as seen. Reproductive: Anteverted uterus, normal in size. Ovaries partially obscured but normal in size. 2.0 cm left ovarian corpus luteum with discontinuous marginal enhancement in keeping with luteal rupture, image 66 of series 8. Bones/joints: No acute fracture seen among the bones of the abdomen or pelvis. Soft tissues: No significant ventral or inguinal hernia. IMPRESSION: 1. Ruptured 2.0 cm left ovarian corpus luteum with a small amount of free fluid in the cul-de-sac of Donnie and adnexal regions. 2. Extensive colonic wall thickening with adjacent hazy fat stranding and scattered small pericolic lymph nodes suspicious for extensive acute colitis. Infectious or inflammatory colitis would be favored in a young patient. This distribution would be atypical for ischemia although ischemia is not excluded. Clinical correlation is recommended. 3. 9 mm right adrenal nodule with a density of 59 Hounsfield units on image 17 of series 8. Correlation with prior imaging recommended to document stability of size versus MRI with chemical shift imaging for definitive evaluation. Dictated and Authenticated by: Fermín Quinn MD. Ordering:DEDE Li MD
[2024-11-10 23:13] VITALS: BP 118/78; PULSE 84; RESP 16; TEMP 37.4; O2SAT 100
== END 2024-11-10 23:13 | disposition home or self-care (01) ==
PROVIDERS: Emergency Provider Student in an Organized Health Care Education/Training Program
DX: K52.9 Noninfective gastroenteritis and colitis, unspecified (principal); E78.5 Hyperlipidemia, unspecified
CPT/HCPCS: 80053; 99285; 74177; 84703; 85025; 99284; J3490

== ENCOUNTER 2024-11-23 19:26 | Emergency (ER) | payer SELFPAY ==
[2024-11-23] VITALS (51 sets, daily range): BP systolic 137; BP diastolic 81; PULSE 106; RESP 10–24; TEMP 36.2; O2SAT 95–100
--- NOTE | 2024-11-23 19:45 | DI.CT_ITS ---
Exam(s) CT ABDOMEN PELVIS W EXAM: CT ABDOMEN PELVIS W CLINICAL HISTORY: abdominal pain, bloody stool diarhea x 3 weeks. TECHNIQUE: Imaging Protocol: Axial computed tomography images with coronal and sagittal reformatted images were created and reviewed CONTRAST MATERIAL: Intravenous: Omnipaque-350 100cc Oral: None COMPARISON: CT CT ABDOMEN PELVIS W from 11/10/2024 FINDINGS: VISUALIZED LUNG BASES: No nodules nor pleural effusions evident. ABDOMEN: There is no ascites. LIVER: There are no focal hepatic lesions evident. No dilated intrahepatic ducts. GALLBLADDER/BILIARY: Gallbladder is again noted to be surgically absent. CBD is not dilated. PANCREAS: No evidence of pancreatic mass nor dilatation of the pancreatic duct. SPLEEN: Spleen is not enlarged. No obvious intrasplenic lesions. Splenic and portal veins are paten t. ADRENALS: There are no significant adrenal masses. KIDNEYS:No cysts evident. No solid renal masses. No calculi nor hydronephrosis.. ABDOMINAL AORTA: Abdominal aorta is not enlarged. LYMPH NODES:There is no retroperitoneal nor paraaortic adenopathy. ABDOMINAL WALL: No evidence of significant anterior abdominal wall nor inguinal hernia. GI: There is a saunders colitis pattern the entire colon being affected, more so than previous. PELVIS: GI: No evidence of appendicitis.No evidence of sigmoid diverticulitis. LYMPH NODES: There is no intrapelvic nor inguinal adenopathy. REPRODUCTIVE: Uterus and adnexal regions unremarkable. URINARY BLADDER: No calculi nor obvious masses evident OSSEOUS: No fractures and no significant osseous lesions. Sacroiliac joints appear unremarkable IMPRESSION: 1. Compared to the previous CT scan of 11/10/2024 there is again noted a colitis pattern. This has f urther progressed and presently involves the entire colon. There is no evidence of significant dilat ation of the affected large bowel and no evidence of perforation. No free air. Appendix unremarkabl e. 2. Previous cholecystectomy. The biliary tree is not dilated. RADIATION DOSE DELIVERED: 727.14mGy.cm Total DLP DATA REPOSITORY: All CT scans at this facility are submitted to the National Radiology Data Registry (NRDR) Dose Index Registry (DIR) with the [employer] (ACR). RADIATION OPTIMIZATION: All CT scans at this facility use at least one of these dose optimization te chniques: automated exposure control; mA and/or kV adjustment per patient size (includes targeted exa ms where dose is matched to clinical indication); or iterative reconstruction.
--- NOTE | 2024-11-23 19:52 | ED.GENADUL_ITS ---
Discharge Plan Disposition Patient Disposition: Home Condition: Good Discharge Details Clinical Impression: Colitis, Acute hypokalemia, Chronic diarrhea, Bloody diarrhea Primary Care Provider: Silvia Helm ED Provider: Jen Lazo Home Meds and New Rx's Prescriptions: Continued epinephrine 0.15 mg/0.3 mL auto-injector 0.3 ml IM ONCE PRN (Reason: anaphylaxis) mesalamine 1.2 gram tablet,delayed release (DR/EC) 1.2 g PO BID Qty: 60 2RF Rx Instructions: must be taken on empty stomach; no food 1 hr after or 2-3 hrs before dose Discharge Instructions Instructions: Hypokalemia, Colitis (DC) Additional Instructions: Your bloodwork was significant for the following: -CBC with no leukocytosis or anemia, CMP with hypokalemia at 2.6 (oral and IV replacement was given in the ED), lactate normal (unlikely ischemic colitis jennifer w/o pain) Your CT scan did show worsening colitis compared to your last visit. You have been advised to followup with your primary care doctor, and with GI as soon possible (if unable to move up your appointment, keep your appointment in December). Your symptoms, exam, and imaging are most consistent with inflammatory colitis (UC, Crohn's), however other etiologies possible & without clear diagnosis I would not treat with asteroid burst at this time. Infectious colitis is also possible but would more typically have fever and abdominal pain; absent this and without stool studies showing clear infection I would not treat with abx now. With no anemia or hemodynamic instability there is no indication for blood transfusion. With no anemia, no dehydration, no hemodynamic instability, and no severe pain there is no indication for hospital admission or emergent colonoscopy. You will need to followup with outpatient providers for definitive diagnosis and further management. Please call your primary care doctor on the morning to schedule a followup appointment for within the next 72 hours. They may went to recheck your potassium. Please also call your GI doctor and see if you can move up that appointment. We have also referred you to [facility] to see if they can get you in quicker. Return to the emergency department for new or worsening symptoms including fever, abdominal pain, lightheadedness or feeling like you are going to pass out, shortness of breath, palpitations, weakness, increasing amounts of blood in your stool, or if you have any other concerns. Stand Alone Forms: Work Release HPI General Mode of arrival: ambulatory . Date/Time Provider Initiated Documentation: 11/23/24 19:29 . Limitations to Documentation: no limitations . Information obtained by: patient and old records reviewed . HPI Narrative: 38yo F presenting with diarrhea for 4 weeks with 2 weeks of bloody diarrhea. Seen in this ED two weeks when she first noticed blood in her stool, at that time has reassuring labs and CT which showed acute colitis. Prior to that ED visit was seen in urgent care where she had negative stool studies. Since discharge from the ED she saw her PCP and was started on mesalamine one week ago which has not helped. Continuing to have 5-6 loose stools every day, often waking her from sleep. Incontinent of stool today which has never happened before. Amount of blood seems to be increasing and she is having clots. Continued diffuse abdominal discomfort, states that it is not painful just discomfort . Mild nausea, no vomiting. Is hungry but when she eats everything goes right through so has not been eating much. Doing well with fluids. No fevers, chills, dysuria, hematuria, or other concerns. Related Data Home Medications ?Medication ?Instructions ?Recorded ?Confirmed epinephrine 0.15 mg/0.3 mL 0.3 ml IM ONCE PRN anaphylaxis 05/14/20 11/23/24 injection,auto-injector mesalamine 1.2 gram tablet,delayed 1.2 g PO BID #60 tabs 11/12/24 11/23/24 release Previous Rx's ?Medication ?Instructions ?Recorded mesalamine 1.2 gram tablet,delayed 1.2 g PO BID #60 tabs 11/12/24 release Allergies Allergy/AdvReac Type Severity Reaction Status Date / Time venom-honey bee Allergy Severe Anaphylaxsi Verified 11/23/24 19:30 s Sulfa (Sulfonamide Allergy Mild twin Verified 11/23/24 19:30 Antibiotics) sister allergic to sulfa General Stated Complaint: GI Bleed AYESHA: 3 Review of Systems Narrative: see HPI Exam Narrative Exam Narrative: General: Alert, well appearing, well nourished, in no acute distress. Head: Normocephalic, atraumatic Neck: Trachea midline, ?Neck supple. Cardiac: ?RRR, no murmurs appreciated Resp: No respiratory distress. CTAB. Abd: ?Soft, non-distended, nontender : ?No suprapubic tenderness. Extremities: ?No deformities.? No peripheral edema. Neurologic: GCS 15. ? Moves all extremities freely against gravity Course Vital Signs Vital signs: Vital Signs Temperature 36.2 C L 11/23/24 19:27 Pulse 106 H 11/23/24 19:27 Respiratory Rate 18 11/23/24 19:27 Blood Pressure 137/81 11/23/24 19:27 Pulse Oximetry 95 11/23/24 19:27 Temperature 36.2 C L 11/23/24 19:27 Temperature Source Temporal Artery Scan 11/23/24 19:27 Pulse 106 H 11/23/24 19:27 Respiratory Rate 18 11/23/24 19:27 Blood Pressure 137/81 11/23/24 19:27 Blood Pressure Position Sitting 11/23/24 19:27 Pulse Oximetry 95 11/23/24 19:27 Oxygen Delivery Method Room Air 11/23/24 19:27 Oxygen Flow Rate 0 11/23/24 19:27 Pain Level 6 11/23/24 19:37 Medical Decision Making 38yo F presenting with diarrhea for 4 weeks with 2 weeks of bloody diarrhea. 1st went to urgent care for diarrhea about 3 weeks ago, negative stool studies at that time. Seen in this ED two weeks ago when she first noticed blood in her stool, at that time has reassuring labs and CT which showed acute colitis. Since discharge from the ED she saw her PCP and was started on mesalamine one week ago which has not helped, appointment with GI in [place] schedule for early December. Continuing to have 5-6 loose stools every day and amount of blood seems to be increasing and she is having clots. Diffuse abdominal discomf ort, denies pain. Mild nausea, no vomiting. No fevers, abdominal pain, lightheadedness, or syncope. Slightly tachycardia on arrival to 106, vital signs otherwise reassuring. Benign abdominal exam. No active rectal bleeding. Will give single dose of toradol for discomfort and see if improves (one 15mg dose unlikely to cause any significant increase in bleeding). - Labs reviewed as below, CBC with no leukocytosis or anemia, CMP with hypokalemia at 2.6 (oral and IV replacement ordered), lactate normal (unlikely ischemic colitis jennifer w/o pain), lipase normal. Mg pending. Awaiting urine for UA and stool for repeat stool studies. - CT abd pelvis independently reviewed, agree with radiology read below with acute colitis. On reassessment remains non-toxic appearing with a benign abdominal exam. With no fever or abdominal pain, would not treat with abx at this time especially absent stool studies suggestive of infectious colitis. Presentation most consistent with inflammatory colitis (UC, Crohn's), however other etiologies possible and without clear diagnosis would not treat with steroid burst at this time. With no anemia, no indication for blood transfusion. Potassium replacement in progress with plan to repeat BMP. She does require outpatient followup for definitive diagnosis and treatment but with overall reassuring labs (assuming potassium rises appropriately), no fevers, no pain, and stable hemodynamics there is no indication for hospital admission at this time. Offered [facility] referral as pt does not feel comfortably waiting until her appt at [place] (though I am not sure GI there will be able to see her any more quickly);pt did accept this. Will be signed out to oncoming physician, plan to followup UA, Mg, and repeat BMP. If reassuring, would discharge home to outpatient followup with PCP and GI. Tentative discharge instructions written. Medical Records Medical records reviewed: Yes I reviewed the patient's medical records. Imaging Data Radiologic Study: Imaging: CT Scan Radiologist's impression: IMPRESSION: 1. No generalized ileus or bowel obstruction. 2. Compared to the prior CT abdomen/pelvis dated 11/10/2024, interval increase in wall thickening involving the distal ascending colon, transverse colon, descending colon, and sigmoid colon - indicating worsening colitis. Lab Data Lab results reviewed: Yes I reviewed the patient's lab results. Labs: Laboratory Tests Range/Units 11/23/24 11/23/24 11/23/24 20:25 21:57 22:57 WBC (4.4-10.8) 10^3/uL 8.33 RBC (3.93-5.22) 10^6/uL 3.69 L Hgb (11.2-15.7) g/dL 11.2 Hct (36.0-46.0) % 33.4 L MCV (80-95) fL 91 MCH (27.0-33.0) pg 30.4 MCHC (32.0-36.0) % 33.5 RDW (11.7-14.6) % 11.7 Plt Count (130-400) 10^3/uL 454 H MPV (8.0-11.0) fL 8.7 Immature Gran % % 0.6 Neutrophils % % 73.2 Lymphocytes % % 16.3 Monocytes % % 6.5 Eosinophils % % 2.8 Basophils % % 0.6 Nucleated RBC % (0.0-0.3) % 0.0 Absolute Neutrophils (1.2-6.7) 10^3/uL 6.10 Absolute Lymphocytes (1.2-3.4) 10^3/uL 1.36 Absolute Monocytes (0.1-0.8) 10^3/uL 0.54 Absolute Eosinophils (0.0-0.7) 10^3/uL 0.23 Absolute Basophils (0.0-0.2) 10^3/uL 0.05 VBG Lactate (<or=2.0) mmol/L 1.1 Sodium (136-145) mmol/L 138 Cancelled Potassium (3.5-5.1) mmol/L 2.6 L* Cancelled Chloride (98-107) mmol/L 101 Cancelled Carbon Dioxide (21.0-32.0) mmol/L 31.2 Cancelled Anion Gap (3-11) mmol/L 5.8 Cancelled BUN (7-18) mg/dL 4 L Cancelled Creatinine (0.55-1.02) mg/dL 0.7 Cancelled Est GFR (CKD-EPI 2020) (mL/min/1.73m2) 114.88 Cancelled Glucose (74-106) mg/dL 130 H Cancelled Calcium (8.5-10.1) mg/dL 8.6 Cancelled Magnesium Cancelled Total Bilirubin (0.2-1.0) mg/dL 0.50 Cancelled AST (15-37) U/L 12 L Cancelled ALT (14-59) U/L 12 L Cancelled Alkaline Phosphatase (46-116) U/L 103 Cancelled Troponin I Cancelled Cancelled Total Protein (6.4-8.2) g/dL 7.2 Cancelled Albumin (3.4-5.0) g/dL 2.6 L Cancelled Lipase (<78) U/L 17 Serum HCG, Qual Negative Quality:SDOH Health Related Social Needs: No Data to Display PFSH All Active Problems Bloody diarrhea (Acute) Chronic diarrhea (Acute) Acute hypokalemia (Acute) Colitis (Acute) Hyperlipidemia (Chronic) Generalized anxiety disorder (Chronic) Migraine headache with aura (Chronic) Cigarette smoker (Chronic) Surgical History S/P cholecystectomy (~2010) Family History Mother Breast cancer Early 40s Depression Father Alcohol abuse Sister Alcohol abuse Depression Maternal Grandfather Liver disease Alcohol abuse Neoplasm Unknown type Heart disease Maternal Grandmother , at 94 from stroke Stroke Skin cancer Paternal Grandfather , at 35 of ?cancer Alcohol abuse Neoplasm Unknown type Paternal Grandmother Depression Social History Smoking/Tobacco Use Status: Former Tobacco Use Tobacco: How many years used: 15 Quit status: considering quitting Smoking risk assessment performed?: Yes Alcohol Intake: former Drug use: Rarely Substance use type: marijuana Details: States has not used tobacco products or drank alcohol in 21 days (11/23/24) Caregiver/Support person: No Household members: significant other, family, children and other Details: Sister, Boyfriend, Niece Housing: house Communication Needs: None Do you need help understanding health information?: Rarely current occupation: Factory line at [email or web address] Pets and animals: No Sexually active: No Current gender identity: female What is your relationship status?: living with partner How often do you talk on the phone with friends or family?: three or more times per week How often do you get together with friends or relatives?: three or more times per week How often do you attend latter-day or confucianist services?: decline to answer Do you belong to any clubs or organized social groups?: no Panel score (0-1 are the most socially isolated patients): 2 What type of physical activity do you participate in: none Jayla/Anglican: None Special jayla needs: No Seatbelt use: always Helmet use: Yes Helmet use: always Drive intox or ride w/intox local owner operator truck driver: No Do you feel safe at home: Yes Do you feel safe in your relationship?: Yes Female Reproductive History Menstrual control method: none History History 2 Para Hx # Term Pregnancies Multiple births Hx # Pregnancies Ectopic pregnancies AB induced 0 Hx Number of Living Children AB spontaneous 2
[2024-11-23] MEDS: Ketorolac 15 MG/ML VIAL IVP (20:30)
[2024-11-23] MEDS: Ondansetron O.D.T. 4 MG TABEF PO (20:31)
[2024-11-23 20:32] LABS: Abs Immature Grans 0.05 10^3/uL (0.0-0.06); Absolute Basophil Count 0.05 10^3/uL (0.0-0.2); Absolute Eosinophil Count 0.23 10^3/uL (0.0-0.7); Absolute Lymphocyte Count 1.36 10^3/uL (1.2-3.4); Absolute Monocyte Count 0.54 10^3/uL (0.1-0.8); Basophils % 0.6 %; Eosinophils % 2.8 %; HCT 33.4 % (36.0-46.0); HGB 11.2 g/dL (11.2-15.7); Immature Grans % 0.6 %; Lactate 1.1 mmol/L (<or=2.0); Lymphocytes % 16.3 %; MCH 30.4 pg (27.0-33.0); MCHC 33.5 % (32.0-36.0); MCV 91 fL (80-95); MPV 8.7 fL (8.0-11.0); Monocytes % 6.5 %; Neutrophils % 73.2 %; Platelet Count 454 10^3/uL (130-400); RBC 3.69 10^6/uL (3.93-5.22); RDW 11.7 % (11.7-14.6); RDW-SD 38.9 fL; WBC 8.33 10^3/uL (4.4-10.8)
[2024-11-23] MEDS: Omnipaque 350 MG/ML 100 ML BTL IJ (20:43)
[2024-11-23] MEDS: Normal Saline - Diluent 50 ML VIAL IJ (20:44)
[2024-11-23 20:49] LABS: ALT 12 U/L (14-59); AST 12 U/L (15-37); Albumin 2.6 g/dL (3.4-5.0); Alkaline Phosphatase 103 U/L (46-116); Anion Gap 5.8 mmol/L (3-11); BUN 4 mg/dL (7-18); CO2 31.2 mmol/L (21.0-32.0); CREATININE 0.7 mg/dL (0.55-1.02); Chloride 101 mmol/L (98-107); Estimated GFR 114.88 (mL/min/1.73m2); Glucose 130 mg/dL (74-106); Lipase 17 U/L (<78); Sodium 138 mmol/L (136-145); Total Protein 7.2 g/dL (6.4-8.2)
[2024-11-23 20:55] LABS: Calcium 8.6 mg/dL (8.5-10.1)
[2024-11-23 20:57] LABS: HCG Qual (Serum) Negative; Potassium 2.6 mmol/L (3.5-5.1)
--- NOTE | 2024-11-23 21:27 | DI.VRAD_ITS ---
PROCEDURE INFORMATION: Exam: CT Abdomen And Pelvis With Contrast Exam date and time: 11/23/2024 8:23 PM Age: 38 years old Clinical indication: Abdominal pain, bloody stool, diarhea x 3 weeks TECHNIQUE: Imaging protocol: Computed tomography of the abdomen and pelvis with contrast. Contrast material: OMNI 350; Contrast volume: 85 ml; Contrast route: INTRAVENOUS (IV); COMPARISON: CT ABDOMEN PELVIS W 11/10/2024 9:00 PM FINDINGS: Lungs: No acute infiltrate in either lung base. Liver: Normal. No mass. Gallbladder and biliary ducts: Status post cholecystectomy. No biliary tract dilatation. Pancreas: Normal. No ductal dilation. Spleen: Normal. No splenomegaly. Adrenal glands: Compared to 11/10/2024, 8-9 mm posterolateral right adrenal stable nodule. Normal left adrenal gland. Kidneys and ureters: No hydronephrosis. No calcified renal or ureteral stones. No perinephric stranding or perinephric fluid. Stomach and bowel: No generalized ileus or bowel obstruction. Compared to the prior CT abdomen/pelvis dated 11/10/2024, interval increase in wall thickening involving the distal ascending colon, transverse colon, descending colon, and sigmoid colon - indicating worsening colitis. Appendix: Normal appendix. Intraperitoneal space: No free air. No significant fluid collection. Vasculature: The abdominal aorta is normal in caliber without aneurysm or dissection. Lymph nodes: Scattered small pericolonic lymph nodes. Urinary bladder: Unremarkable as visualized. Reproductive: 11 mm anterolateral right uterine leiomyoma, otherwise uterus and ovaries within normal limits. Bones/joints: Unremarkable for patient age. Soft tissues: Unremarkable. IMPRESSION: 1. No generalized ileus or bowel obstruction. 2. Compared to the prior CT abdomen/pelvis dated 11/10/2024, interval increase in wall thickening involving the distal ascending colon, transverse colon, descending colon, and sigmoid colon - indicating worsening colitis. Dictated and Authenticated by: Perfecto Hay MD. Ordering:DEDE Li MD
[2024-11-23] MEDS: Lactated Ringers 1,000 ML 200 ML IV (22:07)
[2024-11-23] MEDS: Potassium Chloride Liquid 20 MEQ PKT 40 MEQ PO (22:08)
[2024-11-23] MEDS: POTASSIUM CHLORIDE 20 MEQ/100 ML BAG 50 MEQ IV_INF (22:08)
[2024-11-23 23:22] LABS: Bilirubin Negative (Negative); Blood Negative (Negative); Clarity Clear (Clear); Glucose Negative (Negative); Ketones 15 mg/dL (Negative); Leukocyte Esterase Negative (Negative); Nitrite Negative (Negative); Specific Gravity <= 1.005 (1.005-1.025); Urobilinogen 0.2 mg/dL (Up to 0.2); pH 6.5 (5-8)
[2024-11-24] VITALS (186 sets, daily range): BP systolic 118; BP diastolic 40; PULSE 88; RESP 8–41; TEMP 36.4; O2SAT 96–100
[2024-11-24] MEDS: POTASSIUM CHLORIDE 20 MEQ/100 ML BAG 50 MEQ IV_INF (00:25)
[2024-11-24 04:53] LABS: Potassium 3.6 mmol/L (3.5-5.1)
[2024-11-24 04:57] LABS: Magnesium 1.9 mg/dL (1.8-2.4)
== END 2024-11-24 05:19 | disposition home or self-care (01) ==
PROVIDERS: Student in an Organized Health Care Education/Training Program; Emergency Provider Emergency Medicine; PCP Nurse Practitioner Family
DX: K92.1 Melena (principal); E87.6 Hypokalemia; E78.5 Hyperlipidemia, unspecified; Z87.891 Personal history of nicotine dependence; Z90.49 Acquired absence of other specified parts of digestive tract
CPT/HCPCS: 80048; 80053; 81025; 83690; 96365; 96366; 96375; 99285; 74177; 81003; 83605; 83735; 84132; 84484; 84703; 85025; J1885; J3480; J3490

== ENCOUNTER 2024-11-26 11:32 | Outpatient (CLI) | payer SELFPAY ==
[2024-11-26 12:31] LABS: ESR 36 mm/hr (0-20)
[2024-11-26 13:06] LABS: Anion Gap 7.2 mmol/L (3-11); BUN 4 mg/dL (7-18); C-Reactive Protein 6.91 mg/dL (<or=0.5); CO2 30.8 mmol/L (21.0-32.0); CREATININE 0.7 mg/dL (0.55-1.02); Chloride 103 mmol/L (98-107); Estimated GFR 114.88 (mL/min/1.73m2); Glucose 99 mg/dL (74-106); Potassium 3.3 mmol/L (3.5-5.1); Sodium 141 mmol/L (136-145); TSH (W/Ref FT4) 1.72 uIU/mL (0.36-3.74)
== END 2024-11-26 11:33 | disposition home or self-care (01) ==
LOC: LOS 11:33
PROVIDERS: PCP Nurse Practitioner Family; Referring Provider Nurse Practitioner Family; Visit Provider Nurse Practitioner Family
DX: R19.7 Diarrhea, unspecified (principal); K52.9 Noninfective gastroenteritis and colitis, unspecified; Z76.89 Persons encountering health services in other specified circumstances
CPT/HCPCS: 36415; 80048; 85652; 84443; 86140

== ENCOUNTER 2024-11-26 20:10 | Outpatient (REF) | payer SELFPAY ==
[2024-11-26 16:48] LABS: C Diff PCR Positive (Negative)
[2024-11-30 18:07] LABS: Calprotectin >3000 mcg/g
== END 2024-11-26 20:11 | disposition home or self-care (01) ==
LOC: LBN 20:10
PROVIDERS: PCP Nurse Practitioner Family; Visit Provider Nurse Practitioner Family
DX: R19.7 Diarrhea, unspecified (principal); K52.9 Noninfective gastroenteritis and colitis, unspecified; Z76.89 Persons encountering health services in other specified circumstances
CPT/HCPCS: 87493; 83993

== ENCOUNTER 2024-12-14 14:50 | Outpatient (CLI) | payer BC, SELFPAY ==
--- NOTE | 2024-12-14 14:15 | DI.RAD_ITS ---
Exam(s) XR NASAL BONES EXAM: XR NASAL BONES CLINICAL HISTORY: Nasal pain, J34.89-other specified disorders of nose and nasal sinuses. TECHNIQUE: 2D digital imaging was performed. COMPARISON: No exams were available for comparison FINDINGS: 3 views No evidence of nasal bone fracture. No fluid in the visualized paranasal sinuses. IMPRESSION: Unremarkable appearance of the nasal bones. DATA REPOSITORY: RADIATION DOSE DELIVERED:
== END 2024-12-14 15:10 ==
LOC: DI 14:51
PROVIDERS: PCP Nurse Practitioner Family; Visit Provider Nurse Practitioner Family
DX: J34.89 Other specified disorders of nose and nasal sinuses (principal)
CPT/HCPCS: 70160

== ENCOUNTER 2025-02-24 17:09 | Outpatient (REF) | payer BC, SELFPAY ==
--- NOTE | 2025-02-24 11:40 | PAPFT_PTH ---
PATIENT: Aj Horvath LOC: [facility] U#:[id number] AGE/SX: 39/F ROOM: RE02/24/[address]: BLACK Cordoba : 1985 BED: DIS: 02/24/2025 SPEC #: [id number] RECD: 02/25/25 13:10 STATUS: BECCA REQ #: [id number] MEHRDAD: 02/24/25 11:[address]: Silvia Helm DEPT: [facility] Cytology RECD BY: Kelly Vergara Tissues: 1 - CX/ENDOCX FOR PAP SMEARS Procedures: PAP THIN PREP/UVM Screening HPV DNA PROBE Comments: [id number] (HPV 16 & 18/45)
== END 2025-02-24 17:10 | disposition home or self-care (01) ==
LOC: LBN 17:09
PROVIDERS: PCP Nurse Practitioner Family; Visit Provider Nurse Practitioner Family
DX: Z12.4 Encounter for screening for malignant neoplasm of cervix (principal)
CPT/HCPCS: 88142; 87624

== ENCOUNTER 2025-03-14 01:55 | Outpatient (CLI) | payer BC, SELFPAY ==
--- NOTE | 2025-03-14 06:30 | DI.MAMMO_ITS ---
Exam(s) MAMMO SCREENING EXAM: MAMMO SCREENING CLINICAL HISTORY: screening,z12.39,z80.3, family h/o breast ca TECHNIQUE: Bilateral full field digital CC and MLO mammographic images were obtained with 3D tomosyn thesis and utilizing computer aided detection (CAD). COMPARISON: Available for comparison. FINDINGS: Masses/Architectural Distortion: No suspicious masses or areas of architectural distortion are presen t. Microcalcifications: No suspicious pleomorphic-type are seen. Skin Thickening/Nipple Retraction: None. IMPRESSION: 1. No significant interval change with no specific features of malignancy noted. 2. Unless there is more urgent need, screening mammography is recommended, as per [employer] guidelines. BI-RADS Category 1 - Negative Breast Density - Category B - There are scattered areas of fibroglandular density. Breast density category C or D implies that the patient has dense breast tissue. Dense breast tissue is very common and is not abnormal but dense breast tissue can make it harder to find cancer on a ma mmogram. Also, dense breast tissue may increase their breast cancer risk. This information about the result of the mammogram report was provided to the patient to raise their awareness. Use this report when you speak with the patient about their risks for breast cancer, which includes their family hist ory. At that time, you may recommend for more screening tests (Ultrasound or MRI) as they might be us eful based on their risk. A negative radiographic report should not delay biopsy if a dominant or clinically suspicious mass is present. Up to ten percent of cancers are not identified on mammography. A negative report may reinforce clinical impression. Adenosis and dense breasts may obscure an underlying neoplasm. False positive reports average 6 to 10%. Patient will receive a letter notifying them of these results.
== END 2025-03-14 02:15 ==
LOC: DI 01:55
PROVIDERS: PCP Nurse Practitioner Family; Visit Provider Nurse Practitioner Family
DX: Z12.31 Encounter for screening mammogram for malignant neoplasm of breast (principal); Z80.3 Family history of malignant neoplasm of breast; R92.323 Mammographic fibroglandular density, bilateral breasts
CPT/HCPCS: 77063; 77067

== ENCOUNTER 2025-03-30 00:17 | Outpatient (CLI) | payer BC, SELFPAY ==
--- NOTE | 2025-03-30 11:30 | DI.MRI_ITS ---
Exam(s) MR BRAIN WO/W EXAM: MR BRAIN WO/W CLINICAL HISTORY: f/u perimyocarditis workup,new persistent headache,antiphospholipid. TECHNIQUE: Multiplanar multisequence MRI of the brain was performed. CONTRAST MATERIAL: IV Contrast: 20 ML of Dotarem contrast administered. COMPARISON: CT HEAD WITHOUT CONTRAST from 04/13/2018 FINDINGS: VENTRICLES AND EXTRA AXIAL SPACES: Normal in size and morphology for the patient's age. HEMORRHAGE: None. CEREBRAL PARENCHYMA: No focus of restricted diffusion to suggest acute infarct. No space-occupying le andres identified. No abnormal high signal lesions in the white matter. BRAINSTEM/CEREBELLUM: Normal. CALVARIUM: Normal. ENHANCEMENT: No suspicious enhancement identified. VISUALIZED PARANASAL SINUSES/MASTOIDS: Clear. Orbits: Unremarkable. Pituitary: Not enlarged. Vasculature: Normal flow voids. IMPRESSION: Unremarkable MRI of the brain. DATA REPOSITORY:
[2025-03-30] MEDS: Gadoterate meglumine 20 ML VIAL IVP (12:03)
[2025-03-30] MEDS: Normal Saline - Diluent 50 ML VIAL IJ (12:03)
--- NOTE | 2025-03-30 12:15 | DI.MRI_ITS ---
Exam(s) MR ABDOMEN WO/W EXAM: MR ABDOMEN WO/W CLINICAL HISTORY: rt adrenal nodule on CT,clarify benign? TECHNIQUE: Multiplanar multisequence MRI of the Abdomen was performed. CONTRAST MATERIAL: IV Contrast: 20 mL of Dotarem contrast administered. COMPARISON: CT ABD PELVIS WITH CONTRAST from 08/10/[address] ABDOMEN PELVIS W from 11/10/2024 FINDINGS: Lung bases: Unremarkable. Liver: Unremarkable. Pancreas: Unremarkable. Gallbladder and Bile Ducts: Cholecystectomy. No evidence of biliary dilatation Adrenals: 8 millimeter homogeneous circumscribed nodule on the lateral limb of the right adrenal glan d. There is signal dropout on opposed phase images, consistent with fatty content and benign adenoma . Left adrenal gland appears normal. Kidneys: Unremarkable. Spleen: Unremarkable. Aorta: Unremarkable. Soft Tissues: Unremarkable. Bone: Unremarkable. Lymph Nodes: Unremarkable. Stomach and bowel: Unremarkable. Peritoneal cavity: Unremarkable. No evidence of ascites. IMPRESSION: 8 millimeter right adrenal nodule is consistent with a benign adenoma. DATA REPOSITORY:
== END 2025-03-30 00:37 ==
LOC: DI 00:17
PROVIDERS: PCP Nurse Practitioner Family; Visit Provider Nurse Practitioner Family
DX: I31.9 Disease of pericardium, unspecified (principal); R76.0 Raised antibody titer; G44.52 New daily persistent headache (NDPH); E27.9 Disorder of adrenal gland, unspecified
CPT/HCPCS: 70553; 74183

== ENCOUNTER 2025-07-18 08:29 | Outpatient (CLI) | payer BC, SELFPAY ==
[2025-07-18 12:09] LABS: Vitamin D 25 Total 30 ng/mL (30-100)
[2025-07-19 11:28] LABS: HBs Antibody, Quant >1000.0 mIU/mL (See Note); Hepatitis B Surface Antigen Negative (Negative)
== END 2025-07-18 08:30 | disposition home or self-care (01) ==
LOC: LBO 08:34
PROVIDERS: PCP Nurse Practitioner Family; Visit Provider Nurse Practitioner Family
DX: E78.5 Hyperlipidemia, unspecified; Z11.59 Encounter for screening for other viral diseases; E55.9 Vitamin D deficiency, unspecified
CPT/HCPCS: 36415; 82306; 86704; 86706; 87340; 87389

== ENCOUNTER 2025-09-02 16:46 | Outpatient (REF) | payer BC, SELFPAY ==
[2025-09-02 21:33] LABS: Glucose Negative (Negative)
[2025-09-04 11:45] LABS: Bacterial Vaginosis (BV) Positive (Negative); Candida glabrata Negative (Negative); Candida species group Positive (Negative); Chlamydia Result Negative (Negative); GC Result Negative (Negative)
== END 2025-09-02 16:47 | disposition home or self-care (01) ==
LOC: LBN 16:46
PROVIDERS: PCP Nurse Practitioner Family; Visit Provider Physician Assistant
DX: R30.0 Dysuria (principal)
CPT/HCPCS: 81513; 87481; 87491; 87591; 87661; 81003; 81015; 87086